=== PATIENT | female | born 1945 | race Caucasian/White ===

== ENCOUNTER 2016-10-02 21:59 | Emergency (ER) | payer MEDICARE, OTHER ==
[2016-10-02] MEDS ORDERED: Ondansetron 4 MG/2 ML SDV IVPUSH ONE (22:26)
[2016-10-02] MEDS ORDERED: Nitroglycerin 2% Oint 1 GM UD Packet TOP ONE (22:29)
[2016-10-02] MEDS ORDERED: Sodium Chloride 0.9% 1,000 ML IV SCH (22:30)
[2016-10-02] MEDS ORDERED: Pantoprazole 40 MG in Sodium Chloride 0.9% 100 ML IV ONE (22:33)
--- NOTE | 2016-10-02 22:35 | EDM.PDOC ---
[id number] INDIGESTION Time Seen by Provider: 10/02/16 22:08 Source of Information: Reports: Patient, Family History Limitations: Reports: No Limitations - History of Present Illness INITIAL COMMENTS - FREE TEXT/NARRATIVE: 71 y.o.w.f with a h/o CAD, 2 Stent placement 08/2016, came to the ed due to SSCP , nonradiating and SOB. Pt was doing Garden work when she she suddenly could no breath. Pt was driven to the ed by her SO. Her CP was 6/10. O2 was 95 on 4 liters O2 BP was 154/85 pulse was 74. Pt took 81 mg ASA in am. ROBERTA showed a NSR. As per SO, all her toes were blue and painful CONTENT STRATEGIST Onset: Sudden Onset Date: 10/02/16 Onset Time: 07:00 Duration: Hour(s): Location: Reports: Chest Chest Pain Score (Numeric/FACES): 1 - Related Data Allergies Allergy/AdvReac Type Severity Reaction Status Date / Time sargramostim [From Leukine] Allergy Chills Verified 02/07/15 18:58 Home Meds: Home Meds Acetaminophen 325 mg PO Q4H PRN 04/14/14 [History] Aspirin 1 tab PO DAILY 10/02/16 [History] Metoprolol Succinate [Toprol XL] 1 tab PO BID 10/02/16 [History] Nitroglycerin [Nitrostat] 1 tab PO ASDIRECTED 10/02/16 [History] Rosuvastatin [Crestor] 1 tab PO DAILY 10/02/16 [History] Ticagrelor [Brilinta] 1 tab PO DAILY 10/02/16 [History] Past Medical History Cardiovascular History: Reports: [place], Stents Respiratory History: Reports: SOB Other Genitourinary History: nephrectomy Oncologic (Cancer) History: Reports: Non-Hodgkin's Lymphoma Other Oncologic History: stem cell 17 years ago Social & Family History - Tobacco Use Smoking Status *Q: Former Smoker Years of Tobacco use: 30 Packs/Tins Daily: 0.3 Used Tobacco, but Quit: Yes Month Tobacco Last Used: 2016 - Caffeine Use Caffeine Use: Reports: Coffee, Tea - Alcohol Use Days Per Week of Alcohol Use: 0 - Recreational Drug Use Recreational Drug Use: No Drug Use in Last 12 Months: No ED ROS GENERAL - Review of Systems Review Of Systems: See Below Constitutional: Reports: No Symptoms HEENT: Reports: No Symptoms Respiratory: Reports: Shortness of Breath Cardiovascular: Reports: Chest Pain Endocrine: Reports: No Symptoms GI/Abdominal: Reports: No Symptoms : Reports: No Symptoms Musculoskeletal: Reports: No Symptoms Skin: Reports: No Symptoms Neurological: Reports: No Symptoms Psychiatric: Reports: No Symptoms Hematologic/Lymphatic: Reports: No Symptoms Immunologic: Reports: No Symptoms ED EXAM, GENERAL - Physical Exam Exam: See Below Exam Limited By: No Limitations General Appearance: Alert, WD/WN, Mild Distress Eye Exam: Bilateral Eye: Normal Inspection Ears: Normal External Exam Ear Exam: Bilateral Ear: Auricle Normal Nose: Normal Inspection, Normal Mucosa, No Blood Throat/Mouth: Normal Inspection, Normal Lips, Normal Oropharynx Head: Atraumatic, Normocephalic Neck: Normal Inspection, Supple, Non-Tender, Full Range of Motion Respiratory/Chest: No Respiratory Distress, Lungs Clear, Normal Breath Sounds Cardiovascular: Normal Peripheral Pulses, Regular Rate, Rhythm, No Edema, No Gallop Peripheral Pulses: 2+: Femoral (L), Femoral (R) GI/Abdominal: Normal Bowel Sounds, Soft, Non-Tender (Female) Exam: Deferred Rectal (Female) Exam: Deferred Back Exam: Normal Inspection, Full Range of Motion Extremities: Normal Inspection, Normal Range of Motion, Non-Tender, No Pedal Edema Neurological: Alert, Oriented, CN II-XII Intact, Normal Cognition Psychiatric: Normal Affect, Normal Mood Skin Exam: Warm, Dry, Intact, Normal Color, No Rash Lymphatic: No Adenopathy EKG INTERPRETATION EKG Date: 10/02/16 Time: 22:05 Rhythm: NSR Rate (Beats/Min): 77 [place]: Normal P-Wave: Present QRS: Normal ST-T: Normal QT: Normal Comparison: NA - No Prior EKG Course - Vital Signs Text/Narrative:: 71 y.o.w.f with a h/o CAD, 2 Stent placement 08/2016, came to the ed due to SSCP , nonradiating and SOB. Pt was doing Garden work when she she suddenly could no breath. Pt was driven to the ed by her SO. Her CP was 6/10. O2 was 95 on 4 liters O2 BP was 154/85 pulse was 74. Pt took 81 mg ASA in am. ROBERTA showed a NSR. As per SO, all her toes were blue and painful CONTENT STRATEGIST PE: WNWD WF in mild/mod distress due to SOB and Cp labsL DDimer > 4000, Cr. 1.9 BUN <26 Troponixn 0.01 ROBERTA: NSR Imaging: CXR WNL Impression: Elevated D Dimer, CRI, Tx: ASA 243 mg, NTG paste 1 inch, Heparin drip with bolus. Reexam: Improved Consultation: Dr. Amaral [facility] accepted the pt for VQ scan not available at [place] Plan: transfer to [facility] by EMS Last Recorded V/S: Last Vital Signs Temp 37.0 C 10/02/16 23:57 Pulse 80 10/02/16 22:08 Resp 18 10/02/16 23:57 BP 146/84 H 10/02/16 23:57 Pulse Ox 100 10/02/16 23:57 - Orders/Labs/Meds Orders: Active Orders 24 hr Category Date Time Status EKG Documentation Completion [RC] ASDIRECTED Care 10/03/16 08:09 Active Labs: Laboratory Tests 10/02/16 10/02/16 10/02/16 Range/Units 22:25 22:25 22:25 WBC 12.8 H (4.5-12.0) X10-3/uL RBC 4.29 (3.23-5.20) x10(6)uL Hgb 11.8 (11.5-15.5) g/dL Hct 35.9 (30.0-51.3) % MCV 83.7 (80-96) fL MCH 27.6 L (27.7-33.6) pg MCHC 32.9 (32.2-35.4) g/dL RDW 12.8 (11.5-15.5) % Plt Count 221 (125-369) X10(3)uL MPV 10.3 (7.4-10.4) fL Neut % (Auto) 70.1 (46-82) % Lymph % (Auto) 18.6 (13-37) % Cloud % (Auto) 2.9 L (4-12) % Eos % (Auto) 8 H (1.0-5.0) % Baso % (Auto) 1 (0-2) % Neut # (Auto) 8.9 H (1.6-8.3) # Lymph # (Auto) 2.4 (0.6-5.0) # Cloud # (Auto) 0.4 (0.0-1.3) # Eos # (Auto) 1.0 H (0.0-0.8) # Baso # (Auto) 0.1 (0.0-0.2) # PT (8.7-11.1) INR (0.89-1.13) D-Dimer, Quantitative 4510 H (100-400) ng/mL Sodium 137 (135-145) mmol/L Potassium 4.1 (3.5-5.3) mmol/L Chloride 107 (100-110) mmol/L Carbon Dioxide 20 L (23-29) mmol/L BUN 33 H (8-23) mg/dL Creatinine 1.9 H (0.6-1.3) mg/dL Est Cr Clr Drug Dosing TNP Estimated GFR (MDRD) 26 L (>60) BUN/Creatinine Ratio 17.4 (9-20) Glucose 107 (80-116) mg/dL Uric Acid (3.0-7.0) mg/dL Calcium 9.2 (8.6-10.2) mg/dL Troponin I (0.02-0.06) NG/ML B-Natriuretic Peptide (0-100) pg/mL 10/02/16 10/02/16 10/02/16 Range/Units 22:25 22:25 22:25 WBC (4.5-12.0) X10-3/uL RBC (3.23-5.20) x10(6)uL Hgb (11.5-15.5) g/dL Hct (30.0-51.3) % MCV (80-96) fL MCH (27.7-33.6) pg MCHC (32.2-35.4) g/dL RDW (11.5-15.5) % Plt Count (125-369) X10(3)uL MPV (7.4-10.4) fL Neut % (Auto) (46-82) % Lymph % (Auto) (13-37) % Cloud % (Auto) (4-12) % Eos % (Auto) (1.0-5.0) % Baso % (Auto) (0-2) % Neut # (Auto) (1.6-8.3) # Lymph # (Auto) (0.6-5.0) # Cloud # (Auto) (0.0-1.3) # Eos # (Auto) (0.0-0.8) # Baso # (Auto) (0.0-0.2) # PT 10.6 (8.7-11.1) INR 1.05 (0.89-1.13) D-Dimer, Quantitative (100-400) ng/mL Sodium (135-145) mmol/L Potassium (3.5-5.3) mmol/L Chloride (100-110) mmol/L Carbon Dioxide (23-29) mmol/L BUN (8-23) mg/dL Creatinine (0.6-1.3) mg/dL Est Cr Clr Drug Dosing Estimated GFR (MDRD) (>60) BUN/Creatinine Ratio (9-20) Glucose (80-116) mg/dL Uric Acid 6.7 (3.0-7.0) mg/dL Calcium (8.6-10.2) mg/dL Troponin I < 0.01 L (0.02-0.06) NG/ML B-Natriuretic Peptide (0-100) pg/mL 10/02/ Range/Units 22:31 WBC (4.5-12.0) X10-3/uL RBC (3.23-5.20) x10(6)uL Hgb (11.5-15.5) g/dL Hct (30.0-51.3) % MCV (80-96) fL MCH (27.7-33.6) pg MCHC (32.2-35.4) g/dL RDW (11.5-15.5) % Plt Count (125-369) X10(3)uL MPV (7.4-10.4) fL Neut % (Auto) (46-82) % Lymph % (Auto) (13-37) % Cloud % (Auto) (4-12) % Eos % (Auto) (1.0-5.0) % Baso % (Auto) (0-2) % Neut # (Auto) (1.6-8.3) # Lymph # (Auto) (0.6-5.0) # Cloud # (Auto) (0.0-1.3) # Eos # (Auto) (0.0-0.8) # Baso # (Auto) (0.0-0.2) # PT (8.7-11.1) INR (0.89-1.13) D-Dimer, Quantitative (100-400) ng/mL Sodium (135-145) mmol/L Potassium (3.5-5.3) mmol/L Chloride (100-110) mmol/L Carbon Dioxide (23-29) mmol/L BUN (8-23) mg/dL Creatinine (0.6-1.3) mg/dL Est Cr Clr Drug Dosing Estimated GFR (MDRD) (>60) BUN/Creatinine Ratio (9-20) Glucose (80-116) mg/dL Uric Acid (3.0-7.0) mg/dL Calcium (8.6-10.2) mg/dL Troponin I (0.02-0.06) NG/ML B-Natriuretic Peptide 797 H (0-100) pg/mL Meds: Medications Discontinued Medications Generic Name Dose Route Start Last Admin Trade Name Freq PRN Reason Stop Dose Admin Aspirin 243 mg 10/02/16 22:48 10/02/16 22:30 Aspirin PO 10/02/16 22:49 243 mg ONETIME ONE Administration Heparin Sodium (Porcine) 5,000 units 10/03/16 00:05 10/03/16 00:11 Heparin Sodium IVPUSH 10/03/16 00:06 5,000 units ONETIME ONE Administration Sodium Chloride 1,000 mls @ 125 mls/hr 10/02/16 22:30 10/02/16 22:39 Normal Saline IV 125 mls/hr ASDIRECTED GEM Administration Pantoprazole Sodium 40 mg/ 100 mls @ 200 mls/hr 10/02/16 22:33 10/02/16 22:40 Sodium Chloride IV 10/02/16 23:02 200 mls/hr .BOLUS ONE Administration Heparin Sodium/Dextrose 25,000 units in 500 mls @ 15.567 mls/hr 10/03/16 00: 15 10/03/16 00:19 Heparin 25,000 Units In D5w 500 Ml IV 12 units/kg/hr TITRATE GEM 15.567 mls/hr Protocol Administration 12 UNITS/KG/HR Nitroglycerin 1 gm 10/02/16 22:29 10/02/16 22:44 Nitro-Bid 2% TOP 10/02/16 22:30 1 gm ONETIME ONE Administration Ondansetron HCl 8 mg 10/02/16 22:26 10/02/16 22:40 Zofran IVPUSH 10/02/16 22:27 8 mg ONETIME ONE Administration Departure - Departure Time of Disposition: 00:43 Disposition: DC/Tfer to Other Reason for Transfer *Q: Other (No VQ scan available at [facility]) Condition: Fair Clinical Impression: Elevated d-dimer Chest pain Qualifiers: Chest pain type: unspecified Qualified Code(s): R07.9 - Chest pain, unspecified Referrals: Vito Babin MD [Primary Care Provider] - Forms: ED Department Discharge - My Orders Last 24 Hours: My Active Orders 10/03/16 08:09 EKG Documentation Completion [RC] ASDIRECTED - Assessment/Plan Last 24 Hours: My Active Orders 10/03/16 08:09 EKG Documentation Completion [RC] ASDIRECTED
[2016-10-02] MEDS ORDERED: Aspirin 81 MG Tab.Chew PO ONE (22:48)
[2016-10-02 23:58] VITALS: BP 146/84
[2016-10-03] MEDS ORDERED: Heparin Sodium 5,000 Units/ML Vial IVPUSH ONE (00:05)
[2016-10-03] MEDS ORDERED: Heparin Sodium/D5W 25,000 UNITS/500 ML BAG IV SCH (00:15)
== END 2016-10-03 01:10 | disposition other institution (70) ==
LOC: FB.ED 21:59
DX: R07.9 Chest pain, unspecified (principal); R79.1 Abnormal coagulation profile; R06.02 Shortness of breath; I25.2 Old myocardial infarction; Z79.82 Long term (current) use of aspirin; Z95.5 Presence of coronary angioplasty implant and graft; Z87.891 Personal history of nicotine dependence
CPT/HCPCS: 36415; 71010; 80048; 83880; 84484; 84550; 85025; 85379; 85610; 93005; 96365; 96376; 99283; 99285; A9270; C9113; J1644; J2405; J7030; J7040; 96361; 96367; 96375

== ENCOUNTER 2019-09-26 06:44 | Day surgery (SDC) | payer MEDICARE, OTHER ==
[2019-09-26] MEDS ORDERED: Lactated Ringers 1,000 ML IV SCH (06:45)
[2019-09-26] MEDS ORDERED: Sodium Chloride 0.9% 10 ML Syringe FLUSH PRN (06:45)
[2019-09-26] MEDS ORDERED: Propofol 200 MG/20 ML SDV IV ONE (06:45)
--- NOTE | 2019-09-26 08:22 | PCM.OPNOTE ---
- General Post-Op/Procedure Note Date of Surgery/Procedure: 09/26/19 Operative Procedure(s): c scope Findings: diveticulosis Pre Op Diagnosis: hx of colon polyps Post-Op Diagnosis: sigmoid diverticulosis Anesthesia Technique: LEANDRA Primary Surgeon: Chavez Marshall Anesthesia Provider: Fabio Pablo Complications: None Condition: Good Free Text/Narrative:: see dictation
--- NOTE | 2019-09-26 08:58 | OR ---
DATE OF OPERATION: 09/26/2019 SURGEON: Chavez Marshall MD PROCEDURE PERFORMED: Colonoscopy. PREOPERATIVE DIAGNOSIS: Need for screening C-scope, personal hx of colon polyps POSTOPERATIVE DIAGNOSIS: Diverticulosis of the sigmoid colon. INDICATIONS FOR PROCEDURE: This is a 74-year-old white female, presents for routine colonoscopy. She was offered and accepted same. DESCRIPTION OF OPERATION: After an excellent IV sedation was administered, digital rectal exam was performed. No marked abnormality was noted. Flexible colonoscope was inserted and advanced to the cecum. Prep was excellent. The following findings were noted. Ascending colon, unremarkable. Transverse colon, unremarkable. Descending colon, unremarkable. Sigmoid, occasional diverticula. Rectum and anus, unremarkable. Colon was deflated as the scope was removed. The patient tolerated the procedure well, was taken to recovery in good condition. RECOMMENDATIONS: Repeat colonoscopy on a p.r.n. basis. /[id number] DWAIN/IRASEMA HUNG
[2019-09-26 11:26] VITALS: BP 153/54; PULSE 66
== END 2019-09-26 09:19 | disposition home or self-care (01) ==
LOC: FB.SDS 06:44
PROVIDERS: ATTEND Surgery
DX: Z12.11 Encounter for screening for malignant neoplasm of colon (principal); K57.30 Diverticulosis of large intestine without perforation or abscess without bleeding; I25.10 Atherosclerotic heart disease of native coronary artery without angina pectoris; I13.11 Hypertensive heart and chronic kidney disease without heart failure, with stage 5 chronic kidney disease, or end stage renal disease; N18.6 End stage renal disease; E78.00 Pure hypercholesterolemia, unspecified; N17.9 Acute kidney failure, unspecified; I50.9 Heart failure, unspecified; I25.2 Old myocardial infarction; Z95.5 Presence of coronary angioplasty implant and graft; Z86.010 Personal history of colon polyps; Z79.899 Other long term (current) drug therapy; Z79.02 Long term (current) use of antithrombotics/antiplatelets; Z79.82 Long term (current) use of aspirin; Z90.5 Acquired absence of kidney; Z86.19 Personal history of other infectious and parasitic diseases; Z87.11 Personal history of peptic ulcer disease; Z90.49 Acquired absence of other specified parts of digestive tract; Z90.89 Acquired absence of other organs
CPT/HCPCS: J2704; J7120

== ENCOUNTER 2020-09-07 11:36 | Emergency (ER) | payer MEDICARE, OTHER ==
[2020-09-07] MEDS ORDERED: Pantoprazole 40 MG Vial IVPUSH ONE (11:50)
[2020-09-07] MEDS ORDERED: Ondansetron 4 MG/2 ML SDV IVPUSH ONE (11:51)
[2020-09-07] MEDS ORDERED: HYDROmorphone 2 MG/ML SDV IVPUSH ONE ×2 (11:51→12:47)
--- NOTE | 2020-09-07 11:59 | EDM.PDOC ---
ED HPI GENERAL MEDICAL PROBLEM - General Chief Complaint: Abdominal Pain Stated Complaint: CHEST PAIN Time Seen by Provider: 09/07/20 11:53 Source of Information: Reports: Patient History Limitations: Reports: No Limitations - History of Present Illness INITIAL COMMENTS - FREE TEXT/NARRATIVE: Presents with epigastric pain since yesterday @1300, states pain was located a little bit higher yesterday into the chest. Endorses nausea, sob, fever to 102, and chills. Denies prior h/o PUD. She does not drink alcohol or smoke cigarettes. Denies URI symptoms. PMHx includes CAD (inferior STEMI 2017), CKD, HTN, and CHF. Patient was given ASA 324 mg PO and NTG SL x 1 with some improvement of pain. Onset Date: 09/06/20 Onset Time: 13:00 Location: Reports: Chest, Abdomen Severity: Severe - Related Data Allergies Allergy/AdvReac Type Severity Reaction Status Date / Time codeine Allergy Nausea Verified 09/26/19 07:18 iron Allergy Other Verified 09/26/19 07:18 NSAIDS (Non-Steroidal Allergy Other Verified 09/26/19 07:18 Anti-Inflamma sargramostim [From Leukine] Allergy Chills Verified 09/26/19 07:18 CONTRAST DYE Allergy Other Uncoded 09/26/19 07:18 ISOSORB DINITRATE-HYDRALAZINE Allergy Headache Uncoded 09/26/19 07:18 Home Meds: Home Meds Acetaminophen 1,000 mg PO Q8H PRN 04/14/14 [History] Aspirin 1 tab PO DAILY 10/02/16 [History] Rosuvastatin [Crestor] 10 mg PO DAILY 10/02/16 [History] Ticagrelor [Brilinta] 1 tab PO DAILY 10/02/16 [History] Clopidogrel [Plavix] 75 mg PO DAILY 09/25/19 [History] Darbepoetin Arpan [Arenesp] 25 mcg .XX ASDIRECTED 09/25/19 [History] Metoprolol Tartrate [Lopressor] 100 mg PO DAILY 09/25/19 [History] amLODIPine Besylate [Norvasc] 10 mg PO DAILY 09/25/19 [History] hydrALAZINE HCl [Hydralazine HCl] 100 mg PO DAILY 09/25/19 [History] Past Medical History HEENT History: Reports: Other (See Below) Other HEENT History: ASTIGMATISM BOTH EYES, REGULAR; HYPERMETROPIA; PRESBYOPIA; CATARACT SENILE; Cardiovascular History: Reports: Heart Failure, Hypertension, MD, Stents Other Cardiovascular History: ST ELEVATION MD; S/P RIGHT CORONARY STENT PLACEMENT; CAD INVOLVING [place] CORONARY ARTERY OF THE [place] HEART; TORTUOS AORTA; PURE HYPERCHOLESTEROLEMIA; , ESSENTIAL HPN; CHOLESTEROL EMBOLISM OF LOWER EXTREMITY; Respiratory History: Reports: SOB Gastrointestinal History: Reports: None Other Genitourinary History: nephrectomy, ACQUIRED ABSENCE OF KIDNEY; CKD STAGE 4 SEVERELY DECREASED GFR; HYPERTENSIVE URGENCY; KASSIDY; ACUTE ON CHRONIC KIDNEY FAILURE; ESRD; Oncologic (Cancer) History: Reports: Non-Hodgkin's Lymphoma Other Oncologic History: stem cell 17 years ago, FOLLICULAR LYMPHOMA Social & Family History - Tobacco Use Tobacco Use Within Last Twelve Months: No - Caffeine Use Caffeine Use: Reports: Coffee - Alcohol Use Alcohol Use History: No ED ROS GENERAL - Review of Systems Review Of Systems: Comprehensive ROS is negative, except as noted in HPI. ED EXAM, GI/ABD - Physical Exam Exam: See Below Exam Limited By: No Limitations General Appearance: Alert, WD/WN, No Apparent Distress Throat/Mouth: Normal Voice, No Airway Compromise Head: Atraumatic, Normocephalic Neck: Full Range of Motion Respiratory/Chest: No Respiratory Distress, Lungs Clear, Normal Breath Sounds Cardiovascular: Regular Rate, Rhythm, No Edema, No Murmur GI/Abdominal Exam: Normal Bowel Sounds, Soft, No Distention, Tender (epigastric and RUQ). No: Guarding Back Exam: Full Range of Motion Extremities: Normal Range of Motion Neurological: Alert, Oriented, Normal Cognition Psychiatric: Normal Affect, Normal Mood Skin Exam: Warm, Dry, Intact #1 Interpretation EKG Date: 09/07/20 Time: 11:39 Rhythm: NSR Rate (Beats/Min): 67 [place]: Normal P-Wave: Present QRS: Normal ST-T: Normal QT: Normal Comparison: No Change (08/23/2019) Course - Vital Signs Last Recorded V/S: Last Vital Signs Temp 36.8 C 09/07/20 11:36 Pulse 66 09/07/20 11:36 Resp 20 09/07/20 11:36 BP 136/69 09/07/20 11:36 Pulse Ox 97 09/07/20 11:36 - Orders/Labs/Meds Orders: Active Orders 24 hr Category Date Time Status EKG Documentation Completion [RC] ASDIRECTED Care 09/07/20 11:40 Active CULTURE BLOOD [BC] Urgent Lab 09/07/20 12:05 Received CULTURE BLOOD [BC] Urgent Lab 09/07/20 12:10 Received Blood Culture x2 Reflex Set [OM.PC] Urgent Oth 09/07/20 11:49 Ordered Isolation [COMM] Routine Oth 09/07/20 11:55 Ordered EKG 12 Lead [EK] Stat Ther 09/07/20 11:40 Ordered Labs: Laboratory Tests 09/07/20 09/07/20 09/07/20 Range/Units 11:45 11:45 11:45 WBC 17.0 H (3.0-10.3) x10-3/uL RBC 3.92 (3.60-5.20) x10(6)uL Hgb 11.6 (11.4-15.5) g/dL Hct 35.4 (34.2-48.2) % MCV 90.3 (76.7-100.5) fL MCH 29.5 (23.9-33.9) pg MCHC 32.7 (31.9-34.8) g/dL RDW 13.5 (12.3-16.5) % Plt Count 201 (151-488) x10(3)uL MPV 10.3 (7.1-12.4) fL Add Manual Diff Yes Neutrophils % (Manual) 70 (46-82) % Band Neutrophils % 2 (0-6) % Lymphocytes % (Manual) 20 (13-37) % Monocytes % (Manual) 7 (4-12) % Eosinophils % (Manual) 1 (0-5) % PT 10.5 (9.0-11.1) sec INR 0.97 L (1.00-1.24) APTT 24.0 L (24.4-33.2) SECONDS Sodium 139 (135-145) mmol/L Potassium 4.7 (3.5-5.3) mmol/L Chloride 105 (100-110) mmol/L Carbon Dioxide 22 (21-32) mmol/L BUN 67 H (7-18) mg/dL Creatinine 2.5 H* (0.55-1.02) mg/dL Est Cr Clr Drug Dosing 17.77 mL/min Estimated GFR (MDRD) 19 L (>60) BUN/Creatinine Ratio 26.8 H (9-20) Glucose 107 (80-116) mg/dL Lactic Acid (0.4-2.0) mmol/L Calcium 8.7 (8.6-10.2) mg/dL Total Bilirubin 0.6 (0.1-1.3) mg/dL AST 16 (5-25) IU/L ALT 46 H (12-36) U/L Alkaline Phosphatase 76 (56-112) IU/L Troponin I (4.0-60.3) pg/mL Total Protein 7.1 (6.0-8.0) g/dL Albumin 3.1 L (3.2-4.6) g/dL Globulin 4.0 g/dL Albumin/Globulin Ratio 0.8 Lipase (73-393) U/L Urine Color (YELLOW) Urine Appearance (CLEAR) Urine pH (5.0-6.5) Ur Specific [place] (1.010-1.025) Urine Protein (NEGATIVE) mg/dL Urine Glucose (UA) (NORMAL) mg/dL Urine Ketones (NEGATIVE) mg/dL Urine Occult Blood (NEGATIVE) Urine Nitrite (NEGATIVE) Urine Bilirubin (NEGATIVE) Urine Urobilinogen (NEGATIVE) mg/dL Ur Leukocyte Esterase (NEGATIVE) Urine RBC (0-5) Urine WBC (0-5) Ur Squamous Epith Cells (NS,R,O) Urine Bacteria (NS) Urine Mucus (NS) SARS-CoV-2 RNA (STEPHEN) (NEGATIVE) 09/07/20 09/07/20 09/07/20 Range/Units 11:45 11:45 11:45 WBC (3.0-10.3) x10-3/uL RBC (3.60-5.20) x10(6)uL Hgb (11.4-15.5) g/dL Hct (34.2-48.2) % MCV (76.7-100.5) fL MCH (23.9-33.9) pg MCHC (31.9-34.8) g/dL RDW (12.3-16.5) % Plt Count (151-488) x10(3)uL MPV (7.1-12.4) fL Add Manual Diff Neutrophils % (Manual) (46-82) % Band Neutrophils % (0-6) % Lymphocytes % (Manual) (13-37) % Monocytes % (Manual) (4-12) % Eosinophils % (Manual) (0-5) % PT (9.0-11.1) sec INR (1.00-1.24) APTT (24.4-33.2) SECONDS Sodium (135-145) mmol/L Potassium (3.5-5.3) mmol/L Chloride (100-110) mmol/L Carbon Dioxide (21-32) mmol/L BUN (7-18) mg/dL Creatinine (0.55-1.02) mg/dL Est Cr Clr Drug Dosing mL/min Estimated GFR (MDRD) (>60) BUN/Creatinine Ratio (9-20) Glucose (80-116) mg/dL Lactic Acid 1.3 (0.4-2.0) mmol/L Calcium (8.6-10.2) mg/dL Total Bilirubin (0.1-1.3) mg/dL AST (5-25) IU/L ALT (12-36) U/L Alkaline Phosphatase (56-112) IU/L Troponin I 12.3 (4.0-60.3) pg/mL Total Protein (6.0-8.0) g/dL Albumin (3.2-4.6) g/dL Globulin g/dL Albumin/Globulin Ratio Lipase 242 (73-393) U/L Urine Color (YELLOW) Urine Appearance (CLEAR) Urine pH (5.0-6.5) Ur Specific [place] (1.010-1.025) Urine Protein (NEGATIVE) mg/dL Urine Glucose (UA) (NORMAL) mg/dL Urine Ketones (NEGATIVE) mg/dL Urine Occult Blood (NEGATIVE) Urine Nitrite (NEGATIVE) Urine Bilirubin (NEGATIVE) Urine Urobilinogen (NEGATIVE) mg/dL Ur Leukocyte Esterase (NEGATIVE) Urine RBC (0-5) Urine WBC (0-5) Ur Squamous Epith Cells (NS,R,O) Urine Bacteria (NS) Urine Mucus (NS) SARS-CoV-2 RNA (STEPHEN) (NEGATIVE) 09/07/20 09/07/20 09/07/20 Range/Units 11:54 14:35 15:15 WBC (3.0-10.3) x10-3/uL RBC (3.60-5.20) x10(6)uL Hgb (11.4-15.5) g/dL Hct (34.2-48.2) % MCV (76.7-100.5) fL MCH (23.9-33.9) pg MCHC (31.9-34.8) g/dL RDW (12.3-16.5) % Plt Count (151-488) x10(3)uL MPV (7.1-12.4) fL Add Manual Diff Neutrophils % (Manual) (46-82) % Band Neutrophils % (0-6) % Lymphocytes % (Manual) (13-37) % Monocytes % (Manual) (4-12) % Eosinophils % (Manual) (0-5) % PT (9.0-11.1) sec INR (1.00-1.24) APTT (24.4-33.2) SECONDS Sodium (135-145) mmol/L Potassium (3.5-5.3) mmol/L Chloride (100-110) mmol/L Carbon Dioxide (21-32) mmol/L BUN (7-18) mg/dL Creatinine (0.55-1.02) mg/dL Est Cr Clr Drug Dosing mL/min Estimated GFR (MDRD) (>60) BUN/Creatinine Ratio (9-20) Glucose (80-116) mg/dL Lactic Acid (0.4-2.0) mmol/L Calcium (8.6-10.2) mg/dL Total Bilirubin (0.1-1.3) mg/dL AST (5-25) IU/L ALT (12-36) U/L Alkaline Phosphatase (56-112) IU/L Troponin I 9.4 (4.0-60.3) pg/mL Total Protein (6.0-8.0) g/dL Albumin (3.2-4.6) g/dL Globulin g/dL Albumin/Globulin Ratio Lipase (73-393) U/L Urine Color Yellow (YELLOW) Urine Appearance Clear (CLEAR) Urine pH 6.0 (5.0-6.5) Ur Specific [place] 1.015 (1.010-1.025) Urine Protein 30 H (NEGATIVE) mg/dL Urine Glucose (UA) Normal (NORMAL) mg/dL Urine Ketones Negative (NEGATIVE) mg/dL Urine Occult Blood Negative (NEGATIVE) Urine Nitrite Negative (NEGATIVE) Urine Bilirubin Negative (NEGATIVE) Urine Urobilinogen Normal (NEGATIVE) mg/dL Ur Leukocyte Esterase Negative (NEGATIVE) Urine RBC 0-5 (0-5) Urine WBC 0-5 (0-5) Ur Squamous Epith Cells Few H (NS,R,O) Urine Bacteria Few H (NS) Urine Mucus Moderate H (NS) SARS-CoV-2 RNA (STEPHEN) Negative (NEGATIVE) Microbiology 09/07/20 11:54 Influenza Type A Antigen Screen - Final Nasopharyngeal Swab NEGATIVE INFLUENZA A VIRUS AG REFERENCE RANGE: NEGATIVE Influenza Type B Antigen Screen - Final NEGATIVE INFLUENZA B VIRUS AG REFERENCE RANGE: NEGATIVE Meds: Medications Discontinued Medications Generic Name Dose Route Start Last Admin Trade Name Freq PRN Reason Stop Dose Admin Al Hydroxide/Mg Hydroxide 15 0 ml 09/07/20 13:16 09/07/20 13:50 ml/ Lidocaine HCl 15 ml PO 09/07/20 13:17 30 ml ONETIME ONE Administration Hydromorphone HCl 0.5 mg 09/07/20 11:51 09/07/20 12:15 Hydromorphone 2 Mg/Ml Sdv IVPUSH 09/07/20 11:52 0.5 mg ONETIME ONE Administration Hydromorphone HCl 1 mg 09/07/20 12:47 09/07/20 12:55 Hydromorphone 2 Mg/Ml Sdv IVPUSH 09/07/20 12:48 1 mg ONETIME ONE Administration Sodium Chloride 500 mls @ 500 mls/hr 09/07/20 12:48 09/07/20 13:45 Normal Saline IV 09/07/20 13:47 500 mls/hr .BOLUS ONE Administration Ondansetron HCl 4 mg 09/07/20 11:51 09/07/20 12:15 Ondansetron 4 Mg/2 Ml Sdv IVPUSH 09/07/20 11:52 4 mg ONETIME ONE Administration Pantoprazole Sodium 40 mg 09/07/20 11:50 09/07/20 12:15 Pantoprazole 40 Mg Vial IVPUSH 09/07/20 11:51 40 mg ONETIME ONE Administration - Radiology Interpretation Free Text/Narrative:: CXR: IMPRESSION: Stable appearing chest. No acute process. Dictated by: Slava Oscar MD CT Abd/Pelvis s/ contrast: IMPRESSION: 1. 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 2. Post appendectomy and cholecystectomy. 3. No obstructive uropathy at the left kidney, however, there were low-density masses of indeterminate nature in the mid pole anterolaterally and lower pole of the left kidney. 4. 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 5. ASD/ASHD with hear at the upper limits of normal in size or slightly enlarged. 6. Sigmoid diverticulosis without evidence of diverticulitis. Dictated by: Slava Oscar MD - Re-Assessments/Exams Free Text/Narrative Re-Assessment/Exam: 09/07/20 15:35 Pain improved but still rates at 6/10 after Dilaudid 1.5 mg IV, Protonix 40 mg IV, and GI cocktail. Patient states she feels as though the pain is increasing again, but requests no additional pain medication at this time 09/07/20 16:06 Dr. Lopez accepts patient for transfer to [facility]. Departure - Departure Time of Disposition: 16:07 Disposition: DC/Tfer to Acute Hospital 02 Condition: Fair Clinical Impression: Intractable epigastric abdominal pain, Atypical chest pain Fever Qualifiers: Fever type: unspecified Qualified Code(s): R50.9 - Fever, unspecified Leukocytosis Qualifiers: Leukocytosis type: other Qualified Code(s): D72.828 - Other elevated white blood cell count - Discharge Information Referrals: Vito Babin MD [Primary Care Provider] - Forms: ED Department Discharge Sepsis Event Note (ED) - Focused Exam Vital Signs: Vital Signs Temp Pulse Resp BP Pulse Ox 09/07/20 11:36 36.8 C 66 20 136/69 97 - My Orders Last 24 Hours: My Active Orders 09/07/20 11:40 EKG Documentation Completion [RC] ASDIRECTED EKG 12 Lead [EK] Stat 09/07/20 11:49 Blood Culture x2 Reflex Set [OM.PC] Urgent 09/07/20 11:55 Isolation [COMM] Routine 09/07/20 12:05 CULTURE BLOOD [BC] Urgent 09/07/20 12:10 CULTURE BLOOD [BC] Urgent - Assessment/Plan Last 24 Hours: My Active Orders 09/07/20 11:40 EKG Documentation Completion [RC] ASDIRECTED EKG 12 Lead [EK] Stat 09/07/20 11:49 Blood Culture x2 Reflex Set [OM.PC] Urgent 09/07/20 11:55 Isolation [COMM] Routine 09/07/20 12:05 CULTURE BLOOD [BC] Urgent 09/07/20 12:10 CULTURE BLOOD [BC] Urgent
[2020-09-07] MEDS ORDERED: Sodium Chloride 0.9% 500 ML IV ONE (12:48)
--- NOTE | 2020-09-07 12:50 | CR ---
INDICATION: Chest pain. CHEST ONE VIEW: AP upright view of the chest portable was obtained 09/07/20 and compared with 10/02/16 and 04/13/11. The heart did not appear enlarged. The aorta is tortuous with calcification in the arch. Overlying EKG leads are noted. Evidence of a healed rib fracture on the right is again noted. A definite acute fracture or dislocation was not identified. IMPRESSION: Stable-appearing chest. No acute process. MTDD
[2020-09-07] MEDS ORDERED: Alum Hydroxide/Mag Hydroxide 15 ML, Lidocaine 2% 15 ML PO ONE ×2 (13:16)
--- NOTE | 2020-09-07 14:45 | CT ---
INDICATION: Upper abdominal pain - epigastric. CT ABDOMEN AND PELVIS WITHOUT CONTRAST: Spiral 2.5 mm axial sections were obtained through the abdomen and pelvis with sagittal and coronal reconstructions, 09/07/20 and compared with 02/07/15. Total exam DLP was 540.75 milligray/cm. While a definite active infiltrate or effusion was not identified, there are some heavy markings at the lingula and middle lobe and lower lobes most likely fibrotic in nature but in the lingula possibly there may be some subsegmental atelectasis or even minimal patchy pneumonia in that area. The latter change appears to be new compared with previous study. The heart appears to be at the upper limits of normal in size. No pericardial effusion was seen. Calcifications are noted in the splenic artery, superior mesenteric artery, abdominal aorta, iliac and femoral arteries with no aneurysmal dilatation of the aorta. No retroperitoneal mass was noted. Retroperitoneal lymphadenopathy is mild and nonspecific. Evidence of cholecystectomy is noted. No gross liver abnormality was seen. The spleen appeared normal except for some punctate calcifications which may represent minimal histoplasmosis. The pancreas appeared normal. No definite biliary ductal dilatation was noted. The adrenal glands appeared normal. The right kidney is absent with no renal bed metastasis identified. The remaining left kidney showed evidence of a low-density mass possibly mostly exophytic off the anterolateral cortex of the mid pole of the left kidney relatively low in density, etiology is indeterminate. Neoplastic process is difficult to exclude without IV contrast. Another low-density lesion is suggested off the lower pole lateral cortex of the left kidney. Again, it is difficult to determine the etiology of these small masses without IV contrast. No evidence of hydronephrosis was noted. 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 No evidence of free air or bowel obstruction was seen. Sigmoid diverticulosis is noted without definite evidence of diverticulitis. 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 The urinary bladder appeared normal. No definite gastric abnormality was identified, although the stomach was not distended. Hypertrophic degenerative changes are noted in the thoracolumbosacral spine with degenerative disc disease at L1-L2 with vacuum disc phenomenon and at L3-L4 and L5-S1 with vacuum disc phenomenon. IMPRESSION: 1. 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 2. Post appendectomy and cholecystectomy. 3. No obstructive uropathy at the left kidney, however, there were low-density masses of indeterminate nature in the mid pole anterolaterally and lower pole of the left kidney. 4. 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 5. ASD/ASHD with heart at the upper limits of normal in size or slightly enlarged. 6. Sigmoid diverticulosis without evidence of diverticulitis. Report was called to Dr. Sampson at 1336 hours 09/07/20. [facility]
[2020-09-07 18:40] VITALS: BP 143/72; PULSE 72
== END 2020-09-07 18:35 ==
LOC: FB.ED 11:36
DX: R10.13 Epigastric pain (principal); R07.89 Other chest pain; D72.828 Other elevated white blood cell count; Z20.822 Contact with and (suspected) exposure to COVID-19; I13.0 Hypertensive heart and chronic kidney disease with heart failure and stage 1 through stage 4 chronic kidney disease, or unspecified chronic kidney disease; N18.9 Chronic kidney disease, unspecified; I50.9 Heart failure, unspecified; I25.2 Old myocardial infarction; E78.00 Pure hypercholesterolemia, unspecified; Z79.82 Long term (current) use of aspirin; Z79.02 Long term (current) use of antithrombotics/antiplatelets; Z79.899 Other long term (current) drug therapy; Z95.5 Presence of coronary angioplasty implant and graft; Z88.5 Allergy status to narcotic agent; Z91.09 Other allergy status, other than to drugs and biological substances; Z91.041 Radiographic dye allergy status; Z88.8 Allergy status to other drugs, medicaments and biological substances
CPT/HCPCS: 36415; 71045; 74176; 80053; 81001; 83605; 83690; 84484; 85025; 85610; 85730; 87040; 87804; 87804-59; 93005; 93010; 96374; 96375; 96376; 99284; 99285-25; A9270-GY; C9113; J1170; J2405; J7040; U0002